=== PATIENT | female | born 1930 | race Caucasian/White ===

== ENCOUNTER 2019-05-01 07:09 | Inpatient (IN) | payer OTHER ==
[~2019-05-01] VITALS: Ht 137.2 cm; Wt 46.2 kg
[2019-05-01] VITALS (18 sets, daily range): BP systolic 96–138; BP diastolic 33–83
[2019-05-01] MEDS ORDERED: OXYBUTYNIN 5 MG5 M2 PO (07:21)
[2019-05-01] MEDS ORDERED: ALENDRONATE SOD10 MG PO (07:22)
[2019-05-01 09:02] LABS: HEMATOCRIT 31.5 % (37.0-47.0); HEMOGLOBIN 10.6 gm/dL (12.0-15.0); MCH 36.2 pg (26.0-34.0); MCHC 33.6 g/dL (28.0-37.0); MCV 107.8 fL (80.0-100.0); RBC 2.92 mil/uL (4.20-5.00); RDW 15.5 % (10.5-14.5); WBC 5.5 thou/uL (4.0-11.0)
[2019-05-01 09:08] LABS: CALCIUM 8.9 mg/dL (8.5-10.1); CREATININE 0.7 mg/dL (0.6-1.0); POTASSIUM 3.6 mmol/L (3.5-5.1)
[2019-05-01 09:12] LABS: PROTIME 10.7 Seconds (9.3-11.4)
[2019-05-01 09:13] LABS: TOTAL BILIRUBIN 0.7 mg/dL (<0.1-1.0); TOTAL PROTEIN 7.1 g/dL (6.4-8.2)
[2019-05-01 09:14] LABS: URINE BILIRUBIN NEGATIVE (Negative); URINE BLOOD NEGATIVE (Negative); URINE CLARITY CLEAR; URINE COLOR YELLOW; URINE GLUCOSE-RANDOM* NEGATIVE (Negative); URINE KETONES NEGATIVE (Negative); URINE LEUKOCYTES-REFLEX NEGATIVE (Negative); URINE NITRITE-REFLEX NEGATIVE (Negative); URINE PROTEIN (DIPSTICK) NEGATIVE (Negative); URINE UROBILINOGEN 0.2 E.U./dl (0.2-1.0)
[2019-05-01 09:35] LABS: ABSOLUTE NEUTROPHILS 5.1 thou/uL (1.4-8.2); METAMYELOCYTES 1 %; NUCLEATED RBCS 1 /100WBC
[2019-05-01 09:36] LABS: ANISOCYTOSIS 2+; MACROCYTES 2+; PLATELET COUNT 159 thou/uL (150-400); PLATELET ESTIMATE NORMAL
--- NOTE | 2019-05-01 13:33 | NUR ---
1110-RECEIVED PT FROM E.R. TO ICU BED W FULL C.SPINE PRECAUTIONS MAINTAINED. HARD C.COLLAR IN PLACE.--VW 1330- CALLED IN,UPDATED.ORDERS NOTED.SECURITY UP,DETAILED VALUABLES ENVELOPE DONE,TAKEN W SECURITY FOR LOCK UP PER PT'S REQUEST.PT IS NOT ABLE TO SIGN ANY PERMITS. PT IN TOO MUCH PAIN,CANNOT LIFT ARMS.VERBAL CONSENTS GIVEN.PT SPOKE W SON IN LAW ALICIA OVER PHONE. CASE MANAGEMENT IN TO SPEAK W PT.PASTORAL CARE IN.ENC PT TO TAKE PAIN MED,WILL ALLLOW TO SLEEP ABLE.NEURO CKS W/O CHANGE.NO PILLOW,SMALL BLANKET BENEATH SHOULDERS.--VW
--- NOTE | 2019-05-01 15:31 | NUR ---
Case opened to follow for dc planning. Bridge consult also rec'd. Pt is currently in ICU with SDH and possible neck fx. MRI pending. Safety Risk Lead visited with the pt at bedside. Chart reviewed and case discussed with the care team. The pt fell going into med bldg A for an outpt appt. Security filed an incident report and risk mgnt is aware. 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 She drives and is indep. Her car is in the parking lot. Security is aware and they have her keys and valuables in the safe. She lives indepenedently in her own home. She does not use any dme. Her son Tano lives with her. She indicates that he had mental health issues and has been off his medications. He has been living with her for approx 6 months. She is afraid of him at times and he usually calms down when she threatens to call the police. She denies being afraid to return home at dc. She is a . She has a dtr Vanita and son in law Steven. She recently lost her other son. She prefers Steven to be her primary emergency contact as her dtr suffers from anxiety. She is unsure if she has a dpoa or adv directive in place but if she does than Vanita would likely have those documents. She is agreeable for Vanita or Tano to get basic information on how she is doing but does not want to worry or stress them. Steven is aware that she is here. Cm role introduced. DV advocate referral declined. Will follow along for possible rehab needs. Will ask for therapy and rehab medicine eval as appropriate.
--- NOTE | 2019-05-01 19:00 | NUR ---
1819- RETURNED CALL-UPDATED.ORDERS NOTED.--VW 1844-C.COLLAR REMOVED ORDERED. MOVING ALL EXTREM.IMMED TO SLEEP ONCE COLLAR OFF.--VW 1849- IN TO SEE.--VW
[2019-05-02] VITALS (20 sets, daily range): BP systolic 94–123; BP diastolic 40–57
[2019-05-02 05:05] LABS: HEMATOCRIT 26.3 % (37.0-47.0); HEMOGLOBIN 8.8 gm/dL (12.0-15.0); MCH 36.2 pg (26.0-34.0); MCHC 33.6 g/dL (28.0-37.0); MCV 107.8 fL (80.0-100.0); RBC 2.44 mil/uL (4.20-5.00); RDW 15.4 % (10.5-14.5); WBC 5.2 thou/uL (4.0-11.0)
[2019-05-02 05:19] LABS: CALCIUM 7.8 mg/dL (8.5-10.1); CREATININE 0.5 mg/dL (0.6-1.0); MAGNESIUM 1.9 mg/dL (1.8-2.4); PHOSPHORUS 3.3 mg/dL (2.5-4.9); POTASSIUM 3.9 mmol/L (3.5-5.1)
--- NOTE | 2019-05-02 06:26 | NUR ---
PT AXO4. MEDICATED FOR PAIN RELIEF. AFEBRILE. SPINAL PRECAUTIONS MAINTIANED DURING THE NIGHT. EDUCATED PATIENT ABOUT PRECAUTIONS. Q1 NUERO CHECKS. VSS.NO COMPLAINS PRESENTLY. WILL CONTNUE TO MONITOR
[2019-05-02 10:21] LABS: % SATURATION 11 % (20-39); IRON 16 ug/dL (50-170); TIBC 149 ug/dL (250-450)
[2019-05-02 11:41] LABS: FOLIC ACID 32.9 ng/mL (8.6-58.9)
--- NOTE | 2019-05-02 12:50 | NUR ---
NEURO CHECKS EVERY HOUR, DROWSY BUT AWAKES TO VOICE AND INTERMITTENTLY CONFUSED. MRI OF SPINE AND PELVIS COMPLETED TODAY, CT HEAD FOLLOW UP COMPLETED TODAY. PT/OT CONSULT AND REHAB CONSULT ORDERED. WAITING ON TLSO BRACE SO SHE CAN BE AMBULATORY
--- NOTE | 2019-05-02 18:37 | NUR ---
pt received to room 354 via bed from icu. report recieved from rn at bs. pt aox3, not oriented to time. pt verbalized that she has oak mite bites to her bue, but also stating that she has bed bugs. icu clerk denies that pt has bed bugs and states that she has been stating this since the last few hours as she has become more awake. pt settled into room. fall precautions in place. external female catheter in place. pt refused dinner tray at this time. pt states that she does not have much of an appetite for food. pt w/ x2 hearing aids in cup placed at bs, no need for hearing aids at this time. tlso brace w/ directions at bs, icu clerk stated that the pt is not to be up at bs or out of bed w/o the brace on per dr. bailey. vss.
[2019-05-03 04:00] VITALS: BP 138/42
--- NOTE | 2019-05-03 06:26 | NUR ---
PT MAKING PROGRESS TOWARDS GOALS. ONLY REPORTS 2/10 HEADACHE, DENIED NEED FOR ANY PAIN MEDICATION. ORIENTED TO NAME, LOCATION AND SITUATION BUT NOT VERY WELL TO DATE AND TIME OF DAY. IRRITABLE BRIEFLY WHEN WOKEN UP.
[2019-05-03 08:00] VITALS: BP 106/60
[2019-05-03 08:18] VITALS: BP 104/41
[2019-05-03 14:00] VITALS: BP 110/66
[2019-05-03 15:18] VITALS: BP 101/44
--- NOTE | 2019-05-03 18:17 | NUR ---
pt is A&O X2 ( PERSON AND PLACE) , but pt is forgetful, pt can follow commands, pt is continuing o2 2L/min/nc, pt's vs and o2sat are stable, pt 's low back pain can control by po medication.
[2019-05-03 19:15] VITALS: BP 99/51
[2019-05-04 04:47] VITALS: BP 115/49
--- NOTE | 2019-05-04 06:04 | NUR ---
PT MAKING SLOW PROGRESS TOWARDS GOALS. PT UP TO BSC X1 THIS AM. REFUSED TO WEAR BACK BRACE. "THAT THING DOES FIT RIGHT. IT'S WAY TOO TIGHT AND POKING ME IN THE JAW." WILL ASK DAY RN TO EVAL THIS WITH PHYSICIANS/PT STAFF. "I'M NOT PUTTING IT ON AGAIN UNTIL THEY GET ME ONE THAT FITS RIGHT." PT REPORTEDLY ABLE TO STAND A PIVOT ONLY. X1 DOSE LORTAB THIS MORNING.
[2019-05-04 07:25] VITALS: BP 103/58
--- NOTE | 2019-05-04 10:39 | NUR ---
PT REFUSING PIV RESTART. CALLED RN IN TO SPEAK WITH PT AND PT CONTINUED TO REFUSE. SHOWED PT HER PATENT VEINS ON ULTRASOUND SHE WANTED TO KNOW WHY I WAS THE "EXPERT".
[2019-05-04 11:36] VITALS: BP 123/59
--- NOTE | 2019-05-04 15:40 | NUR ---
Assumed care approx. 0700 this AM. Patient refused pain medication this morning. Patient later decided she would take the hydrocodone that was ordered before he pain became any worse. The patient remains to refuse her brace. Patient hopefully expected to go to rehab this week. The patient took out her IV this morning, and refused another to be placed. Dr. Francisco made aware and PO kerexra ordered in place of the IV dose. Patient oriented x4 with intermittent confusion/forgetfullness. Patient slowly progressing toward plan of care. Patient's daughter updated on the phone this AM.
[2019-05-04 15:58] VITALS: BP 104/46
[2019-05-04 20:25] VITALS: BP 109/53
--- NOTE | 2019-05-05 03:46 | NUR ---
PT MAKING SLOW PROGRESS TOWARDS GOALS. ENCOURAGED TO BUT PT REFUSES TO WEAR TLSO BRACE WHEN OUT OF BED. "IT DOESN'T FIT RIGHT. THEY ARE SUPPOSED TO COME AND FIT ME WITH A PROPER FITTING ONE TOMMORROW." DENIES ANY PAIN WHILE AT REST. "BUT IF I MOVE, IT REALLY HURTS."
[2019-05-05 04:00] VITALS: BP 108/51
[2019-05-05 07:45] VITALS: BP 110/59
[2019-05-05 08:50] VITALS: BP 110/59
--- NOTE | 2019-05-05 10:29 | H ---
[facility] [place] [address] HISTORY AND PHYSICAL Name: JASON VREGARA Room #: 354-P ADM IN M.R.#: [id number] Admission: 05/01/19 Attend Phys: Parviz Tatum MD Discharge: Date of : 08/05/30 Report #: [id number] THIS REPORT FOR: //name// CC: Parviz Tatum FAM unknown NO PCP CHIEF COMPLAINT: Fall from standing. HISTORY OF PRESENT ILLNESS: The patient is a very pleasant 88-year-old female who presented to the ER after falling earlier today, the patient was going to see a switchman supervisor and fell in the parking lot, she hit her head, did not lose consciousness. She fell onto her back. She is complaining of right elbow, right shoulder, bilateral chest pain. She is complaining of cervical spine, thoracic spine and sacral spine pain and tenderness. PAST MEDICAL HISTORY: 1. Osteoporosis. 2. Valvular heart disease, on aspirin. 3. Bladder incontinence. 4. Denies any other medical problems. PAST SURGICAL HISTORY: 1. Sternotomy and placement of prosthetic valve, the patient is unsure of aortic or mitral. 2. History of abdominal exploration for adhesions when she was a teen. SOCIAL HISTORY: Occasional cocktail. No tobacco use. Lives in [place]. She is independent. She lives with her son. FAMILY HISTORY: 1. Denies coagulopathy. 2. Mom had heart disease and her entire side of the family had heart disease. 3. Grandmother had cancer. REVIEW OF SYSTEMS: CONSTITUTIONAL: No fever. No chills. HEENT: Denies blurring of vision, double vision, headaches, hearing loss, sinus drainage or sore throat. Denies blurring of vision, double vision, headaches, hearing loss, sinus drainage or sore throat. CARDIOVASCULAR: Denies chest pain, palpitations, orthopnea or paroxysmal nocturnal dyspnea. RESPIRATORY: Denies cough, wheezing, hemoptysis, or shortness of air. GASTROINTESTINAL: No nausea. No vomiting. No diarrhea. No Heartburn. No nausea. No vomiting. No diarrhea. No Heartburn. GENITOURINARY: Denies dysuria or hematuria or kidney stones. No urinary frequency, urgency or incontinence. Denies dysuria or hematuria or kidney [facility] [address] [place] [address] HISTORY AND PHYSICAL Name: JASON VERGARA Room #: 354-P [facility] IN M.R.#: [id number] Admission: 05/01/19 Attend Phys: Parviz Tatum MD Discharge: Date of : 08/05/30 Report #: [id number] stones. No urinary frequency, urgency or incontinence. MUSCULOSKELETAL: See above and below. NEUROLOGICAL: Denies tremor, stroke or seizure. Denies tremor, stroke or seizure. HEMATOLOGIC / LYMPHATICS: Denies easy bruising, easy bleeding or enlarged lymph nodes. SKIN: No rash or ulceration. ENDOCRINE: No heat or cold intolerance PSYCHIATRIC: Denies depression, anxiety, or schizophrenia. PHYSICAL EXAMINATION: VITAL SIGNS: Temperature 37.1, pulse 80, respiratory rate 16, blood pressure 105/83, pulse ox is 98%. GENERAL: No apparent distress, alert and oriented x3. HEENT: PERRLA, EOMI, MMM, NCAT NECK: Supple. No LAD CHEST: Tender to palpation with anterior to posterior pressure as well as medial to lateral pressure. CARDIOVASCULAR: Regular rhythm and rate. Hemodynamically stable. Normal capillary refill. Regular rhythm and rate. Hemodynamically stable. Normal capillary refill. PULMONARY: Nonlabored. Clear to auscultation bilaterally ABDOMEN: Soft, nontender to palpation, no guarding, no rigidity, no rebound tenderness, no hernias. EXTREMITIES: Calves soft, nontender, no edema. SKIN: No rashes or bruises. PSYCHIATRIC: Normal mood and affect Normal mood and affect NEUROLOGICAL: Grossly intact. CN II-XII grossly intact. MUSCULOSKELETAL: A 5/5 strength in bilateral lower extremities with nonpainful range of motion. Right elbow is tender. Has a painful range of motion. Right shoulder has a nonpainful range of motion. Left upper extremity has normal strength and sensation, normal nonpainful range of motion. LYMPHATICS: No cervical, inguinal, or supraclavicular lymphadenopathy. BACK: The patient has cervical, thoracic, and sacral tenderness to palpation. She is exquisitely tender in these positions and this is reproducible. LABORATORY DATA: White blood count is 5.5, hemoglobin 10.6, hematocrit 31.5, platelets 159. Sodium 140, potassium 3.6, chloride 102, bicarbonate 27, creatinine 0.7, total bilirubin 0.7, AST 25, ALT 30, alkaline phosphatase 68. INR is 1. Urinalysis is negative. IMAGING: Chest x-ray, impression, atraumatic. Pelvic x-ray, impression: Negative. [address] [place] [address] HISTORY AND PHYSICAL Name: JASON VERGARA Room #: 354-P [facility] IN M.R.#: [id number] Admission: 05/01/19 Attend Phys: Parviz Tatum MD Discharge: Date of : 08/05/30 Report #: [id number] C-spine impression, "No CT evidence of acute cervical spine fracture or subluxation." CT head impression, thin subdural hematoma along the left aspect of the falx cerebri measuring up to 4-9 mm in thickness without significant mass effect upon the adjacent brain parenchyma. Additional small amount of subdural hemorrhage layering along the left tentorial leaflet. Mild generalized parenchymal volume loss and mild to moderate chronic small vessel ischemic changes. CT of the lumbar spine impression. 1. Acute angulation of the sacrum at S2 with some soft tissue thickening in the presacral region. Acute fracture is not excluded. MRI can evaluate for marrow edema. There is also irregularity of the sacral wings on the axial images. Mild wedging of L1 and possible minor wedging L3, which are of uncertain chronicity. MRI could evaluate for marrow edema. 2. Old T11 compression fracture with vertebroplasty. CT chest, impression: No acute thoracic abnormality identified. CT thoracic spine, impression: 1. Age indeterminate moderate to severe central endplate compression fracture of the T3 vertebral body without evidence of posterior bulging or retropulsion of the posterior cortex. Moderate superior plate compression fracture of the T11 vertebral body, status post osteoplasty. No additional acute osseous abnormality identified. Right elbow x-ray. No acute fracture or dislocation. ASSESSMENT AND PLAN: The patient is a very pleasant 88-year-old female status post fall from standing. 1. Fall from standing. 2. Subdural hematoma. 3. T3 compression fracture, age indeterminate. 4. Thoracic spine tenderness at T3. 5. L1 and L3, possible compression fractures on CT. 6. Possible sacral fracture. 7. Bilateral chest pain. 8. Right elbow pain. 9. Cervical spine tenderness. 10. Osteoporosis. 11. Valvular heart disease on aspirin, status post prosthetic valve placement, uncertain of the position. [facility] [address] [place] [address] HISTORY AND PHYSICAL Name: JASON VERGARA Room #: 354-P ADM IN M.R.#: [id number] Admission: 05/01/19 Attend Phys: Parviz Tatum MD Discharge: Date of : 08/05/30 Report #: [id number] PLAN: 1. Admit to trauma. 2. Consult Neurosurgery. Appreciate recommendations. 3. Repeat CT of the head in 12 hours. 4. Hold antiplatelets. 5. Keppra IV for seizure prophylaxis, although this seems to minimally be in the falx. 6. Cervical collar and C, T and L-spine immobilization and spine precautions. 7. MRI of the cervical spine pending. Would normally get a flexion, extension x-ray. However, she is having significant tenderness and going for MRI of the thoracic and lumbar spine. So, we will do an MRI of the cervical spine as well. 8. Analgesia and antiemetics. 9. IV fluid resuscitation while n.p.o. 10. Okay to eat once cleared by Neurosurgery. <ELECTRONICALLY SIGNED> By: Parviz Tatum MD 05/05/19 1029 [id number] Parviz Tatum MD /nt
--- NOTE | 2019-05-05 14:09 | NUR ---
PATIENT SEEN BY DR. GOLDEN THIS DATE. PATIENT IS A REHAB CANDIDATE, BUT DOES NOT WISH TO COME TO [facility]. PATIENT AND PATIENT'S DAUGHTER WISH TO GET BACK INTO THE [facility]. ACTIVITIES VOLUNTEER INFORMED AND WILL ASSIST PATIENT. THANK YOU FOR THIS REFERRAL.
--- NOTE | 2019-05-05 15:29 | NUR ---
Kellen Rep at bedside to size TLSO brace for pt dt her co of it not fitting correctly and giving her pain when she wears it dt her need to wear it out of bed and when working w/ pt/ot per orders. pt states that she would like to have her rehabilitation at [facility], aware and persuing rehabilitation options for the pt. pt has received her belongings from [facility] this afternoon. pt's daughter requesting, from staff, the incident report of her mother's fall, Claudy at today to talk w/ the pt and pt's daughter re incident report. if the pt or pt's daughter have any further questions re the incident report they need to call Claudy, pt's daughter has his phone number.
--- NOTE | 2019-05-05 15:31 | NUR ---
Following for d/c planning needs. Pt was evaluated by [facility], but pt said she would prefer to go to [facility] spoke with Jen ([phone]). Currently their unit is full and they do not anticipate any discharges. Will remain available to assist as needed.
[2019-05-05 15:52] VITALS: BP 116/47
--- NOTE | 2019-05-05 16:29 | NUR ---
BIOMEDICAL SCIENTIST INFORMED THAT PATIENT IS AGREEABLE TO COME TO [facility], DUE TO NO BEDS AT [facility]. LIAISON SPOKE WITH DR. GOLDEN WHO AGREES FOR ADMISSION TO [facility] ON 05/06/19. COLORING MACHINE OPERATOR INFORMED OF PLAN. NURSE ON REHAB AND 3W NURSE INFORMED OF PLAN FOR ADMISSION AROUND 10:00 AM. 3W NURSE TO REACH OUT TO DR. GARCIA AND REQUEST THAT IF POSSIBLE THAT D/C BE COMPLETED BY THAT TIME. THANK YOU FOR THIS REFERRAL!
[2019-05-05 16:48] VITALS: BP 116/47
[2019-05-05 19:35] VITALS: BP 112/63
[2019-05-06 03:55] VITALS: BP 106/58
--- NOTE | 2019-05-06 06:20 | NUR ---
PAITENT IS ALERT AND ORIENTED. PATIENT IS UP TIMES TWO WITH BACK BRACE. PATIENT IS LOG ROLL ONLY DUE TO BACK FX. PATIENT IS ON 2L NC PER COMFORT. PATIENT IS INCONTIENT. PATIENT IS NSR ON TELE. PATIENTS LBM WAS THE 25TH MIRALAX WAS GIVEN. PATIENT HAS AN EXTERNAL FEMALE CATH. PATIENTS PAIN IS TREATED WITH PAIN MEDICATION. PATIENT IS PENDING TRANFER TO [facility] TODAY. PATIENT IS RESTING COMFORTABLY IN BED. WCM. PATIENT IS PROGRESSING TO GOALS.
[2019-05-06 07:43] VITALS: BP 105/43
[2019-05-06] MEDS ORDERED: HYDROCODON-ACE1 EAC7 PO (09:51)
[2019-05-06] MEDS ORDERED: IRON325 PO (09:51)
[2019-05-06] MEDS ORDERED: ACETAMINOPHEN325 M1 PO (09:52)
[2019-05-06] MEDS ORDERED: MIRALAX17 GM PO (09:52)
[2019-05-06] MEDS ORDERED: COLACE 100 MG100 MG PO (09:52)
[2019-05-06] MEDS ORDERED: KEPPRA 500 MG500 M1 PO (09:56)
[2019-05-06 10:02] LABS: HEMOGLOBIN 10.6 gm/dL (12.0-15.0); MCH 36.1 pg (26.0-34.0); MCHC 33.2 g/dL (28.0-37.0); MCV 108.8 fL (80.0-100.0); RBC 2.94 mil/uL (4.20-5.00); RDW 15.6 % (10.5-14.5); WBC 4.8 thou/uL (4.0-11.0)
[2019-05-06 10:20] LABS: ALBUMIN 3.1 g/dL (3.4-5.0); CALCIUM 9.1 mg/dL (8.5-10.1); CREATININE 0.6 mg/dL (0.6-1.0); PHOSPHORUS 3.9 mg/dL (2.5-4.9); POTASSIUM 3.9 mmol/L (3.5-5.1); TOTAL BILIRUBIN 0.4 mg/dL (<0.1-1.0); TOTAL PROTEIN 7.3 g/dL (6.4-8.2)
--- NOTE | 2019-05-06 11:24 | NUR ---
PT ALERT AND ORIENTED TIMES FOUR WITH VERY BLUNTED AFFECT. VSS, SR ON TELE. PT DENIES PAIN/SOA AT THIS TIME. PT TOLERATES MEDS AND MEALS. PT UP TO BSC WITH ASSIST OF TWO. PLANS TO TRANSFER TO TODAY. PT PROGRESSING TOWRADS POC GOALS.
--- NOTE | 2019-05-06 13:43 | NUR ---
I have reviewed the student's documentation.
--- NOTE | 2019-05-06 14:33 | NUR ---
DISCHARGE NOTE: SW reviewed chart and spoke with nursing and attending physician. Pt is medically stable for discharge to [facility] today. Pt moved earlier today. Rehab CM to follow and assist as needed with discharge planning.
[2019-05-07] MEDS ORDERED: SENNA-TIME S T1 EACH PO (16:13)
--- NOTE | 2019-05-21 14:25 | HC ---
[facility] [place] [address] CONSULTATION Name: JASON VERGARA Room #: 354-P DIS IN M.R.#: [id number] Admission: 05/01/19 Attend Phys: Parviz Tatum MD Discharge: 05/06/19 Date of : [birth year] Report #: [id number] THIS REPORT FOR: //name// CC: Parviz Tatum [facility] physician/PCP DATE OF SERVICE: 05/03/2019 REASON FOR CONSULTATION: Sacral fractures. HISTORY OF PRESENT ILLNESS: The patient is an 88-year-old female who fell on the date of admission while walking to her Dermatology appointment. There may have been a car involved, but this is somewhat unclear. This happened here. She was brought in the Emergency Department and diagnosed with a subdural hematoma and admitted in the ICU. She is also being evaluated by Neurosurgery for apparently multiple spine fractures. PAST MEDICAL HISTORY: Osteoporosis and urinary dysfunction as well as coronary artery disease. PAST SURGICAL HISTORY: They report she has had a valve replaced. ALLERGIES: No known drug allergies. HOME MEDICATIONS: None. MEDICATIONS: Include oxybutynin and alendronate. REVIEW OF SYSTEMS: NEUROLOGIC: Denies numbness or tingling. MUSCULOSKELETAL: Denies any other areas of significant pain aside from her back. She reports she "hurts all over." SOCIAL HISTORY: Denies smoking, drinks alcohol rarely, lives with her disabled son. She works as a real estate investment analyst, does not use any ambulatory aids and is very independent. LABORATORY STUDIES: On 05/02/2019 show white blood cell count 5.2, hemoglobin 8.8, hematocrit 26.3, platelet count is 131. INR is 1. Chemistry is grossly normal. PHYSICAL EXAMINATION: GENERAL: The patient is alert and oriented. She interacts appropriately. She has 4 family members at her bedside. She is well-developed, well-nourished female with normal affect. She converses well. VITAL SIGNS: Most recent vital signs show heart rate of 82, respiratory rate [facility] [address] [place] [address] CONSULTATION Name: JASON VERGARA LINWOOD Room #: 354-P [facility] IN M.R.#: [id number] Admission: 05/01/19 Attend Phys: Parviz Tatum MD Discharge: 05/06/19 Date of : [birth year] Report #: [id number] 20, blood pressure 104/41, pulse oximetry is 97% on 2 liters nasal cannula. EXTREMITIES: Examination of her bilateral upper extremities, her motor and sensory intact. Her skin is clean, dry and intact. She moves her bilateral upper extremities without pain and within functional range of motion. She has no tenderness to palpation throughout the entire bilateral upper extremities. Bilateral lower extremities, sensation is intact to light touch throughout. She has brisk capillary refill. EHL, FHL, dorsiflexion and plantar flexion are intact. She has gross motor and sensory function intact. There is no pain with range of motion of bilateral hips, knees, ankles or feet. She reports diffuse tenderness to palpation. There is tenderness at the sacrum posteriorly. IMAGING: AP pelvis does not show any acute abnormality. CT scan did not show any definite abnormality. MRI shows mild S2 compression fracture and positive S4 edema, as well as other vertebral fractures being treated by Neurosurgery. IMPRESSION AND PLAN: S2 compression fracture and S4 fracture. We discussed diagnosis as well as treatment options. This can also be managed with Neurosurgery, but the patient may be weightbearing as tolerated as long as she has her brace on that was recommended by Neurosurgery. We discussed that these fractures take at least 6 weeks to heal and 2 to 4 weeks to get really strong. She will have some pain. We discussed that when she can be up, she needs to be up working on arm strengthening and ambulation when it is safe in order to decrease risk of complications being from bed rest including pneumonia, decubitus ulcers, generalized deconditioning and blood clots. Her family was at her bedside. They all verbalized understanding. Thank you very much for allowing me to participate in the care of this patient. <ELECTRONICALLY SIGNED> By: Lolis Tian MD 05/21/19 1425 [id number] [id number] Lolis Tian MD /nt
== END 2019-05-06 11:30 | DRG 963 ==
LOC: ER 07:09 → 3W 09:36 → ICU 09:36 → EROBS 09:36 → ICU 10:40 → 3W 05-02 18:33 → ENTRNSPT 05-06 11:10 → EDTRNSPTSTS 05-06 11:13 → 3W 05-06 11:30
PROVIDERS: Emergency Medicine; Internal Medicine; ADMIT Surgery
DX: S06.5X9A Traumatic subdural hemorrhage with loss of consciousness of unspecified duration, initial encounter (principal); E43 Unspecified severe protein-calorie malnutrition; S32.15XA Type 2 fracture of sacrum, initial encounter for closed fracture; S32.039A Unspecified fracture of third lumbar vertebra, initial encounter for closed fracture; S32.17XA Type 4 fracture of sacrum, initial encounter for closed fracture; S22.039A Unspecified fracture of third thoracic vertebra, initial encounter for closed fracture; S22.059A Unspecified fracture of T5-T6 vertebra, initial encounter for closed fracture; S22.069A Unspecified fracture of T7-T8 vertebra, initial encounter for closed fracture; I38 Endocarditis, valve unspecified; M81.0 Age-related osteoporosis without current pathological fracture; M25.521 Pain in right elbow; W18.09XA Striking against other object with subsequent fall, initial encounter; Y93.01 Activity, walking, marching and hiking; K59.00 Constipation, unspecified; D50.9 Iron deficiency anemia, unspecified; E53.8 Deficiency of other specified B group vitamins; N39.41 Urge incontinence; N32.81 Overactive bladder; Y99.8 Other external cause status; Z79.899 Other long term (current) drug therapy; Z82.49 Family history of ischemic heart disease and other diseases of the circulatory system; Z80.9 Family history of malignant neoplasm, unspecified; Z95.1 Presence of aortocoronary bypass graft; Z28.21 Immunization not carried out because of patient refusal; Y92.481 Parking lot as the place of occurrence of the external cause
CPT/HCPCS: 10078; 10879

== ENCOUNTER 2019-05-05 16:24 | Inpatient (IN) | payer OTHER ==
[~2019-05-05] VITALS: Ht 137.2 cm; Wt 54.0 kg
[~2019-05-05 16:24] MED LIST: ALENDRONATE SOD10 MG PO; OXYBUTYNIN 5 MG5 M2 PO
[2019-05-06] MEDS ORDERED: HYDROCODON-ACE1 EAC7 PO (09:51)
[2019-05-06] MEDS ORDERED: IRON325 PO (09:51)
[2019-05-06] MEDS ORDERED: MIRALAX17 GM PO (09:52)
[2019-05-06] MEDS ORDERED: COLACE 100 MG100 MG PO (09:52)
[2019-05-06] MEDS ORDERED: ACETAMINOPHEN325 M1 PO (09:52)
[2019-05-06] MEDS ORDERED: KEPPRA 500 MG500 M1 PO (09:56)
[2019-05-06 11:45] VITALS: BP 115/46
--- NOTE | 2019-05-06 13:06 | NUR ---
team meeting, recommendation: re team with cont therapy
--- NOTE | 2019-05-06 13:42 | NUR ---
1230 PATIENT ARRIVED ON UNIT PER W/C AND ADMITTED TO ROOM 503. PATIENT IS ALERT AND ORIENTED X4. PATIENT ELISEO. PATENT HAS TLSO BRACE ON WHEN UP. OFF WHEN IN BED. LUNGS ARE CLEAR. ABD IS SOFT WITH BSX4. UP TO BSC TO VOID AND HAVE A LARGE BM. C/O PAIN IN HER BACK. MEDICATED WITH PRN PAIN MED. UP IN CHAIR FOR LUNCH. PATIENT IS ON REGULAR DIET. FALL AND SAFETY PROTOCOLS IN PLACE. C/O PAIN ABOVE AND PAIN WAS TX. PLAN P.T. EVAL LATER TODAY. ST TO EVAL IN A.M. O.T EVAL LATER TODAY. DAUGHTER IN ROOM . CALL LIGHT IN REACH. WILL CONTINUE TO MONITER.
--- NOTE | 2019-05-06 17:40 | NUR ---
I have reviewed the documentation by CHARISSE KURTZ from 05/06/19 to 05/06/19 and I concur with it. CRUZ NUR
[2019-05-06 19:45] VITALS: BP 125/64
--- NOTE | 2019-05-07 04:05 | NUR ---
assumed care at approx 1900 evening 05/06. pt lying in bed at change of shift with head of bed elevated. daughter at bedside. pt awoke for hs meds and pt somewhat forgetful yet appropriate and cooperative. pt wearing TLSO brace in bed and requested to take off in middle of night. pt assisted with female external catheter not functioning and refitted again. bed pads changed and gown and pt now back to sleep. bed alarm on and call light in reach. will continue to monitor.
[2019-05-07 05:24] LABS: HEMATOCRIT 25.3 % (37.0-47.0); MCH 35.9 pg (26.0-34.0); MCHC 33.4 g/dL (28.0-37.0); MCV 107.5 fL (80.0-100.0); RBC 2.35 mil/uL (4.20-5.00); RDW 15.5 % (10.5-14.5); WBC 4.1 thou/uL (4.0-11.0)
[2019-05-07 05:37] LABS: HEMOGLOBIN 8.5 gm/dL (12.0-15.0)
[2019-05-07 05:49] LABS: CALCIUM 8.1 mg/dL (8.5-10.1); CREATININE 0.6 mg/dL (0.6-1.0); POTASSIUM 4.5 mmol/L (3.5-5.1)
[2019-05-07 07:12] VITALS: BP 104/43
--- NOTE | 2019-05-07 13:59 | NUR ---
Patient participated in community reintegration on 05/07/19 with Physical Therapy. Refer to documentation by PT.
--- NOTE | 2019-05-07 14:12 | NUR ---
cm meet with daughter hazel, dr ríos, quality assurance qa lab technician and nurse unite traffic maintenance supervisor. pt daughter expressed wanting to have her mom transferred to different acute rehab for few reason, one all her dr are in [facility]. education that i would need to speak with laina who is able to make her needs know and if have order for transfer per pt/family request will start the process and not a guarantee that there will be any opens. after meeting cm visited with laina up in wheel chair, noted tlso brace in place, pt able to make her needs know and a & o x 3. pt stated would be best to be transferred where dr are at or [facility]. education on difference between acute rehab and skilled level of rehab with pt and daughter hazel. [facility]st [facility], 2nd [facility], 3rd [facility]. pt and daughter looked and pt stated [facility] [facility] rehop and 3rd sj. will cont following as needed for dc needs.
--- NOTE | 2019-05-07 14:33 | NUR ---
ASSUMED CARES AT 0700. PT AWAKE, ALERT AND ORIENTED*4 BUT FORGETFUL. C/O BACK PAIN, PAIN MEDICATION ADMINISTERED NEEDED. BACK BRACE IN PLACE DURING ALL TRANSFERS. VITALS REMAIN STABLE. THIS MORNING AFTER MEDICATION ADMINISTRATION BY THIS RN, PT GOT OXYBUTYNIN TABLETS FROM HER PURSE AND TOOK 1 PILL BY MOUTH 5MG. WHEN ASKED PT STATED THAT SHE ALWAYS TAKES THE MEDICATION IN THE MORNING AT HOME. PHYSICIAN NOTIFIED, FAMILY NOTIFIED AND INCIDENT REPORT FILLED. PT MONITORED FOR SIDE EFFECTS. ALL MEDS TAKEN FROM PT'S POSSESSION AND ARE IN THE MED ROOM, RN EXPLAINED TO PT REGARDING MEDICATION ADMIN WHILE IN THE HOSP. PT HAS 2 SMALL PIMPLES AROUND SACRAL FOLD, REDNESS ON SACRAL AREA, BARRIER CREAM APPLIED. UP WITH 1-2 MIN ASSIST, GB AND WALKER. Q1H VISUAL CHECKS. CALL LIGHT WITHIN REACH. FALL PRECAUTIONS IN PLACE
--- NOTE | 2019-05-07 14:59 | NUR ---
Nutrition: pt admit to rehab unit with subdural hematoma, possible closed head injury, L2 compression fracture after a fall. RD consulted for poor intake. Unable to speak with pt x [address] evaled on acute. Advanced age of 88 but still drove and worked prior to admit. Weights [id number]# this admit. Short stature of 4'6". RD unable to obtain weight hx on acute. Followup for further weight hx. Intake has been fairly good but variable 50-100% of meals, and enjoys ensure BID. Fe-16, REC start iron supplement. RD will followup for weight hx, otherwise consider low risk with interventions in place.
--- NOTE | 2019-05-07 15:03 | NUR ---
I have reviewed the documentation by DIONY WILSON from 05/07/19 to 05/07/19 and I concur with it. BOAZ CISNEROS, PT, DPT
[2019-05-07] MEDS ORDERED: SENNA-TIME S T1 EACH PO (16:13)
--- NOTE | 2019-05-08 11:04 | H ---
[facility] [place] [address] HISTORY AND PHYSICAL Name: JASON VERGARA Room #: 503-P DIS IN M.R.#: [id number] Admission: 05/06/19 Attend Phys: Felton Reynolds MD Discharge: 05/07/19 Date of : [birth year] Report #: [id number] THIS REPORT FOR: //name// CC: Felton Reynolds [facility] physician/PCP DATE OF SERVICE: 05/06/2019 HISTORY AND PHYSICAL AND POST-ADMISSION PHYSICIAN EVALUATION HISTORY OF PRESENT ILLNESS: The patient has been admitted for acute in-hospital inpatient rehabilitation. Please see my prior progress note and see the fully dictated history and physical. I agree with the examination findings and assessment and plan as noted. The patient is noted to have a T3 compression fracture along with T6 and T7 endplate fractures, S2 and S4 fractures, and also sustained a left frontal subdural hematoma that is being monitored conservatively as per Neurosurgery. She has been fitted with a TLSO. She was placed on Keppra for seizure prophylaxis. She is allowed weightbearing as tolerated bilateral lower extremities. She has been admitted now for acute inpatient rehabilitation. Please see the examination as noted. PHYSICAL EXAMINATION: GENERAL: She is pleasant, alert, will follow basic 1 step commands, some delay in her responses. VITAL SIGNS: Temperature 98.3, pulse 77, respirations 20, and blood pressure 104/43. HEENT: Facies appeared symmetric. CHEST: Sounded clear to auscultation. CARDIOVASCULAR: Regular rate and rhythm. ABDOMEN: Bowel sounds positive, nontender. She is of slender build. GENITOURINARY AND RECTAL: Deferred. EXTREMITIES: She does have functional range of motion of both upper and lower extremities. Strength is probably a grade 3+ to 4-/5. There is no focal weakness. DTRs are trace to 1. Functionally with the brace in place. She is max assist of 2, sit to stand. She did take a couple of steps in physical therapy, max assist of 2 with a front-wheeled walker. ASSESSMENT: 1. Closed head injury with subdural hematoma, status post fall from standing height. 2. Acute T3 compression fracture. 3. T6-T7 endplate fractures. 4. Acute S2 fracture. 5. Acute S4 nondisplaced fracture. [address] [address] HISTORY AND PHYSICAL Name: JASON VERGARA SAVANNAH Room #: 503-P DIS IN M.R.#: [id number] Admission: 05/06/19 Attend Phys: Felton Reynolds MD Discharge: 05/07/19 Date of : [birth year] Report #: [id number] 6. Constipation, which appears improved. 7. Osteoporosis. 8. Overactive bladder. 9. Valvular heart disease, status post prosthetic valve. 10. Iron deficiency with B12 deficient anemia. PLAN: From a postadmission physician evaluation perspective, there are no relevant changes since the preadmission screening. Please see the above review of prior and current medical and functional conditions and comorbidities. Please see the patient's previous and current functional status. As far as risk of complications, she does have the above noted medical comorbidities. Initial plan of care involves the interdisciplinary acute inpatient rehabilitation program with goal of maximizing her functional independence, so she can hopefully return back to her prior living situation. Measurable functional goals would be for the patient to become modified independent with transfers, mobility, ADLs, cognitive communication issues that she can return back to the home setting. Prognosis is reasonably good with estimated length of stay probably at least 2-3 weeks and likely longer as warranted. Potential barriers would include her multiple medical comorbidities and decreased functional status. The patient meets diagnostic criteria for an acute in-hospital inpatient rehabilitation stay. She meets the medical necessity criteria. She does have the tolerance for therapies and she does have appropriate discharge goals back to the home setting. <ELECTRONICALLY SIGNED> By: Felton Reynolds MD 05/08/19 1104 [id number] Felton Reynolds MD /nt
--- NOTE | 2019-05-16 12:44 | H ---
[facility] [place] [address] HISTORY AND PHYSICAL Name: JASON VERGARA Room #: 503-P DIS IN M.R.#: [id number] Admission: 05/06/19 Attend Phys: Felton Reynolds MD Discharge: 05/07/19 Date of : [birth year] Report #: [id number] THIS REPORT FOR: //name// CC: Felton Reynolds [facility] physician/PCP HISTORY OF PRESENT ILLNESS: This is an 88-year-old female who had a fall in the [facility] parking lot on her way to a Dermatology appointment. She fell backwards, striking the back of her head. She did not lose consciousness. She had immediate back and neck pain and was admitted to the hospital for further care. She was diagnosed with subdural hematoma and acute L3 endplate fracture, acute S2 fracture, acute S4 nondisplaced fracture and an indeterminate age T3 compression fracture. She was seen by trauma surgeon, Dr. Tatum and Neurosurgery. She is to wear TLSO brace at all times when out of bed. She was placed on Keppra for seizure prophylaxis. She is okay for weightbearing as tolerated in the bilateral lower extremities. Due to her debility, she is admitted to inpatient rehab for further therapies. Today, the patient reports dizziness with head movements. She denies headache. She denies vision changes. She denies cough or shortness of air; however, she also tells me at the same time that her lungs are not working well today. Nurse reports she had requested 1 liter nasal cannula for comfort purposes, although her O2 sats have been greater than 90%. She denies dysuria, but does report urinary frequency. She does have complaints of constipation, no BM since prior to admit. She denies nausea or abdominal pain. Appetite is normal for her. Back pain starting from her hairline down to the bottom of her spine, complaints of pain. She denies radiation to her legs or into her arms. She denies numbness or tingling. PAST MEDICAL HISTORY: Osteoporosis, urinary incontinence, iron deficient anemia, valvular heart disease, status post prosthetic valve. MEDICATIONS: Takes aspirin. HABITS: She is a nonsmoker, nondrinker. CODE STATUS: Full code. SOCIAL HISTORY: Premorbidly, the patient is living in a house. Her adult son has been living with her for the past 6 months due to his own mental illness. From review of chart, I see that she has noted she is afraid of him at times, but that he will usually calm down. 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 She was driving. She is right hand dominant. She utilized no assistive device. She was independent with all ADLs and IADLs. She does have a son and daughter that each live about 10 minutes away, but she tells me they are too busy to help her. She has 4 stairs to enter the home with a unilateral hand rail. [address] [address] HISTORY AND PHYSICAL Name: JASON VERGARA Room #: 503-P DIS IN M.R.#: [id number] Admission: 05/06/19 Attend Phys: Felton Reynolds MD Discharge: 05/07/19 Date of : [birth year] Report #: [id number] ALLERGIES: No known allergies. CURRENT MEDICATIONS: Oxybutynin 5 mg daily, MiraLax 17 grams twice a day, Keppra 500 mg twice a day x 3 doses, Colace 100 mg twice a day, Cheraw one tablet q. 6 hours p.r.n., Tylenol 650 q. 6 hours p.r.n., Milk of Mag 10 mL daily p.r.n., bisacodyl suppository daily p.r.n. REVIEW OF SYSTEMS: Remainder of her 14-point review of systems negative except as listed in HPI. PHYSICAL EXAMINATION: VITAL SIGNS: Blood pressure 115/46, respirations 20, pulse 78, temperature 97.7, 94% O2 sat on room air. GENERAL: She is awake, alert. She is oriented x 4. She is in no acute distress. She is on room air. HEENT: Head is normocephalic. Eyes: EOMs are intact. No icterus. No nystagmus appreciated. NECK: No lymphadenopathy. CARDIAC: She has regular rate and rhythm, S1, S2. CHEST: Lungs are clear to auscultation, no crackles, no wheeze. ABDOMEN: Bowel sounds are positive. She is soft. She is nontender. GENITOURINARY: No CVA tenderness. PSYCHIATRIC: She is agitated. EXTREMITIES: Functional range of motion of her upper extremities. Shift Commander are equal. Max assist to sit to stand with TLSO brace on, max assist for 3 steps with use of walker. She is mod assist to log roll, toileting dependent, lower body dressing dependent, bathing max assist. NEUROLOGIC: Cranial nerves 2-12 grossly intact. LABORATORY DATA: From 05/06/2019, sodium 139, potassium 3.9, BUN 14, creatinine 0.6, magnesium 2.0. WBC is 4.8, hemoglobin 10.6, hematocrit 32, platelets 198. ASSESSMENT: 1. Subdural hematoma, status post fall from standing height. 2. Possible closed head injury. 3. Acute L3 endplate fracture. 4. Acute S2 fracture. 5. Acute S4 nondisplaced fracture. 6. Indeterminate age T3 compression fracture. 7. Constipation. 8. Osteoporosis. 9. Overactive bladder. 10. Iron deficient and B12 deficient anemia. 11. Valvular heart disease, status post prosthetic valve on p.o. aspirin. PLAN: The patient has been admitted to acute inpatient rehabilitation for [facility] [address] [place] [address] HISTORY AND PHYSICAL Name: JASON VERGARA Room #: 503-P [facility] IN M.R.#: [id number] Admission: 05/06/19 Attend Phys: Felton Reynolds MD Discharge: 05/07/19 Date of : [birth year] Report #: [id number] physical, occupational and we will obtain a speech therapy evaluation for cognition and memory. We will work on pain control. Continue encouragement, she has to wear the TLSO brace. She continues to report it does not fit her; however, the slubber frame changer rub has come out to reassess fit and I was told that she was clear that it is fitting her appropriately at this time. We will obtain a UA for her urinary frequency and add bowel regimen for her constipation. Social work services is consulted for discharge planning needs. She will also have her hospital consultants following Dr. Pollard, Dr. Tatum, Dr. Lorenzo and we will order a neuropsychology evaluation with Dr. Rios. 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 Please see extensive orders. <ELECTRONICALLY SIGNED> By: IVANIA Jiménez 05/16/19 1244 [id number] IVANIA Jiménez /nt
== END 2019-05-07 20:10 | disposition short-term general hospital (02) | DRG 964 ==
PROVIDERS: Nurse Practitioner Family; ADMIT Physical Medicine & Rehabilitation
DX: S06.5X0A Traumatic subdural hemorrhage without loss of consciousness, initial encounter (principal); S22.039A Unspecified fracture of third thoracic vertebra, initial encounter for closed fracture; S32.19XA Other fracture of sacrum, initial encounter for closed fracture; S32.039A Unspecified fracture of third lumbar vertebra, initial encounter for closed fracture; M81.0 Age-related osteoporosis without current pathological fracture; W18.39XA Other fall on same level, initial encounter; K59.00 Constipation, unspecified; N32.81 Overactive bladder; D51.9 Vitamin B12 deficiency anemia, unspecified; D50.9 Iron deficiency anemia, unspecified; Z95.2 Presence of prosthetic heart valve; Z79.82 Long term (current) use of aspirin; Y93.89 Activity, other specified; Y92.89 Other specified places as the place of occurrence of the external cause; Y99.8 Other external cause status
CPT/HCPCS: 10112

== ENCOUNTER → 2019-05-21 | Outpatient (CLI) | payer OTHER ==
[~2019-05-21] MED LIST changes: +ACETAMINOPHEN325 M1 PO; +COLACE 100 MG100 MG PO; +HYDROCODON-ACE1 EAC7 PO; +IRON325 PO; +KEPPRA 500 MG500 M1 PO; +MIRALAX17 GM PO; +SENNA-TIME S T1 EACH PO
== END ==
LOC: CAT 08:48
DX: M47.816 Spondylosis without myelopathy or radiculopathy, lumbar region (principal); M48.54XA Collapsed vertebra, not elsewhere classified, thoracic region, initial encounter for fracture; M43.8X4 Other specified deforming dorsopathies, thoracic region; M51.34 Other intervertebral disc degeneration, thoracic region; M43.8X6 Other specified deforming dorsopathies, lumbar region; M43.17 Spondylolisthesis, lumbosacral region; M47.817 Spondylosis without myelopathy or radiculopathy, lumbosacral region; I70.0 Atherosclerosis of aorta; M43.12 Spondylolisthesis, cervical region; M50.322 Other cervical disc degeneration at C5-C6 level; M12.88 Other specific arthropathies, not elsewhere classified, other specified site

== ENCOUNTER → 2019-06-11 | Outpatient (CLI) | payer OTHER | LOC: RAD 11:43 | DX: M47.814 Spondylosis without myelopathy or radiculopathy, thoracic region (principal); M48.54XA Collapsed vertebra, not elsewhere classified, thoracic region, initial encounter for fracture; M85.88 Other specified disorders of bone density and structure, other site; M43.8X6 Other specified deforming dorsopathies, lumbar region ==